=== PATIENT | female | born 1965 | race Caucasian/White ===

== ENCOUNTER 2023-12-10 17:51 | Emergency (ER) | payer BC ==
[2023-12-10] MEDS ORDERED: Gabapentin 300 MG CAP ONE (19:47)
[2023-12-10] MEDS ORDERED: HYDROcodone/Acetaminophen 5/325 mg Tablet ONE (19:47)
== END 2023-12-10 20:42 | disposition home or self-care (01) ==
LOC: CSHERS 17:51
DX: M25.562 Pain in left knee (principal); Z55.6 Problems related to health literacy
CPT/HCPCS: 99283